=== PATIENT | male | born 1960 | race Caucasian/White ===

== ENCOUNTER 2025-06-28 15:13 | Emergency (ER) | payer OTHER ==
[~2025-06-28] VITALS: Ht 172.7 cm; Wt 88.5 kg
[2025-06-28 17:00] LABS: BASOPHILS 0.3 % (0.2-1.2); EOSINOPHILS 0.1 % (0.8-7.0); LYMPHOCYTES 10.6 % (21.8-53.1); MCH 30.3 PG (25.7-32.2); MCHC 33.4 g/dL (32.3-36.5); MCV 90.7 fL (79.0-92.2); MONOCYTES 9.6 % (5.3-12.2); NEUTROPHILS 79.0 % (34.0-67.9); RBC 5.15 M/uL (4.63-6.08)
[2025-06-28 17:11] LABS: ALT (SGPT) 51.0 U/L (14-59); AST (SGOT) 226.0 U/L (15-37); GLOMERULAR FILTRATION RATE,EST 94.0 mL/min (>60); PROTEIN, TOTAL 7.4 g/dL (6.4-8.2); UREA NITROGEN 14.0 mg/dL (7-18)
[2025-06-28] MEDS ORDERED: SIMETHICONE125 M1 PO (21:02)
[2025-06-28 21:21] VITALS: BP 105/73
== END 2025-06-28 21:23 | disposition home or self-care (01) ==
LOC: ED 15:13
PROVIDERS: Emergency Medicine
DX: K52.9 Noninfective gastroenteritis and colitis, unspecified (principal); Z88.0 Allergy status to penicillin
CPT/HCPCS: 36415; 74018; 80053; 83690; 85025; 99284